=== PATIENT | female | born 1955 | race Asian ===

== ENCOUNTER 2022-05-01 13:00 | Outpatient (CLI) | payer MEDICARE, BC, SELFPAY ==
[2022-05-01 22:11] LABS: Chloride* 102 mmol/L (96-114)
[2022-05-01 22:12] LABS: Potassium* 4.3 mmol/L (3.6-5.1); Sodium* 139 mmol/L (135-149)
[2022-05-01 22:14] LABS: Carbon Dioxide* 29 mmol/L (20-32); Cholesterol* 177 mg/dL (90-199); Creatinine* 0.8 mg/dL (0.5-1.5); Estimated Glomerular Filt Rate 82 ml/min
[2022-05-01 22:15] LABS: Blood Urea Nitrogen* 22 mg/dL (7-30); Calcium* 9.4 mg/dL (8.4-10.6); Glucose* 156 mg/dL (60-115); HDL Cholesterol* 58 mg/dL (>=50); LDL Cholesterol Calculated 69 mg/dL (<100); Triglycerides* 248 mg/dL (40-149)
[2022-05-01 22:27] LABS: Creatinine Urine 52.5 mg/dL
[2022-05-01 22:31] LABS: Microalbumin Creatinine Ratio 10 mg/g (0-30); Microalbumin Urine < 1 mg/dL
== END 2022-05-01 13:01 | disposition home or self-care (01) ==
PROVIDERS: PCP Family Medicine; Visit Provider Family Medicine
DX: E11.9 Type 2 diabetes mellitus without complications (principal); I10 Essential (primary) hypertension; Z13.6 Encounter for screening for cardiovascular disorders
CPT/HCPCS: 80048; 80061; 82043; 82570

== ENCOUNTER 2023-03-12 11:27 | Outpatient (CLI) | payer MEDICARE, BC, SELFPAY | END 2023-03-12 11:28 | disposition home or self-care (01) | LOC: FBOREF 11:27 | PROVIDERS: PCP Family Medicine; Visit Provider Family Medicine | DX: I10 Essential (primary) hypertension (principal); E78.2 Mixed hyperlipidemia; E11.9 Type 2 diabetes mellitus without complications | CPT/HCPCS: 80048 ==

== ENCOUNTER 2024-03-17 13:51 | Outpatient (CLI) | payer MEDICARE, BC, SELFPAY | END 2024-03-17 13:52 | disposition home or self-care (01) | PROVIDERS: PCP Family Medicine; Visit Provider Family Medicine | DX: E78.2 Mixed hyperlipidemia (principal); I10 Essential (primary) hypertension; E11.65 Type 2 diabetes mellitus with hyperglycemia | CPT/HCPCS: 80048; 80061; 85025 ==

== ENCOUNTER 2024-12-22 10:22 | Outpatient (CLI) | payer MEDICARE, BC, SELFPAY | END 2024-12-22 10:23 | disposition home or self-care (01) | PROVIDERS: PCP Family Medicine; Visit Provider Family Medicine | DX: E11.9 Type 2 diabetes mellitus without complications (principal); I10 Essential (primary) hypertension; E78.2 Mixed hyperlipidemia | CPT/HCPCS: 80048; 80061 ==